=== PATIENT | male | born 1965 | race Caucasian/White ===

== ENCOUNTER 2018-07-14 12:25 | Emergency (ER) | payer OTHER ==
[2018-07-14] MEDS: FLUCONAZOLE 150 MG TAB PO (14:15)
== END 2018-07-14 14:20 | disposition home or self-care (01) ==
LOC: FTE 12:25
DX: N47.2 Paraphimosis (principal)
CPT/HCPCS: 54450; 99283-25

== ENCOUNTER → 2018-08-05 | Emergency (ER) | payer OTHER | END | disposition home or self-care (01) | LOC: FTE 11:30 | DX: M75.32 Calcific tendinitis of left shoulder (principal); E11.9 Type 2 diabetes mellitus without complications; I10 Essential (primary) hypertension | CPT/HCPCS: 73030; 99283-25 ==

== ENCOUNTER 2018-08-20 22:59 | Emergency (ER) | payer OTHER ==
[2018-08-21] MEDS: TETRACAINE 0.5% 4 ML OPH BOTH EYES (00:27)
[2018-08-21] MEDS: FLUORESCEIN STRIP BOTH EYES (00:27)
== END 2018-08-21 01:25 | disposition home or self-care (01) ==
LOC: FTE 22:59
DX: H57.89 Other specified disorders of eye and adnexa (principal); I10 Essential (primary) hypertension; E11.9 Type 2 diabetes mellitus without complications
CPT/HCPCS: 99283; Z7610